=== PATIENT | male | born 1990 | race Two or more races ===

== ENCOUNTER 2024-07-24 10:49 | Emergency (ER) | payer MEDICAID ==
[~2024-07-24] VITALS: Ht 172.7 cm; Wt 63.5 kg
--- NOTE | 2024-07-24 11:15 | NUR ---
INSOMNIA, PANIC ATTACKS X 1 MONTH AFTER STOPPING TO TAKE PSYCH MEDS
--- NOTE | 2024-07-24 11:44 | NUR ---
UA sent to lab
[2024-07-24] MEDS ORDERED: LORAZEPAM 1 MG TABLET ONE (11:46)
[2024-07-24] MEDS: LORAZEPAM 1 MG TABLET PO ONE (11:48)
[2024-07-24] MEDS ORDERED: LORA-258 PO (12:22)
[2024-07-24 12:27] VITALS: BP 110/66; TEMP 98.2; O2SAT 100
--- NOTE | 2024-07-24 12:28 | NUR ---
Patient discharged to home in stable condition. Written and verbal after care instructions given. Patient verbalizes understanding of instruction.
--- NOTE | 2024-07-24 12:28 | NUR ---
Amanda schwab in [facility] - 07/24/24 at 1228 by OWEN Patient discharged to home in stable condition. Written and verbal after care instructions given. Patient verbalizes understanding of instruction.
== END 2024-07-24 12:28 | disposition home or self-care (01) ==
LOC: ER 11:01
DX: G47.00 Insomnia, unspecified (principal); F41.9 Anxiety disorder, unspecified; F41.0 Panic disorder [episodic paroxysmal anxiety]